=== PATIENT | female | born 1970 | race Caucasian/White ===

== ENCOUNTER 2017-07-02 10:21 | Emergency (ER) | payer OTHER ==
[~2017-07-02] VITALS: Ht 170.2 cm; Wt 88.5 kg
--- NOTE | 2017-07-02 11:07 | PHYS DOC ---
General Chief Complaint: MULTIPLE COMPLAINTS Stated Complaint: MULTIPLE COMPLAINTS Time Seen by MD: 11:02 Source: patient Exam Limitations: other (vague historian) Problems: History of Present Illness Initial Comments 47-year-old female sent to the emergency department from [place] for headache and vision changes Patient states that for the past 4-5 nights she "just hasn't been feeling well" and unable to sleep. Saturday morning (2 days ago) she developed nasal congestion with a dry cough and had multiple episodes of loose watery stools and retching no emesis or focal abdominal pain which lasted throughout that day. By Saturday morning GI symptoms had resolved but the cough and congestion persisted. Additionally, on Saturday morning while taking a shower patient began seeing flashing lights in her left eye, severe left cephalgia, and concomitant perceived darkened/blurred vision and "tunnel vision." The headache and vision changes lasted overnight and the patient went to [place] this afternoon for evaluation. On arrival to this emergency department patient was complaining of severe left sided head and body pain (throbbing/pressure) worse with bright light no known relieving factors. She was found to have left-sided trapezius and sternocleidomastoid muscle hypertonicity (chronic she states from prior left clavicle/sternum fracture) which somewhat decreased cervical rotatory range of motion but no actual nuchal rigidity noted. She denies fever, chills, diaphoresis, nausea, and myalgias no new lateralizing neurologic deficits other than the vision change. She was very fearful/anxious on arrival hyperventilating initially. I observed her to ambulate to the exam room unassisted and with normal gait, she was freely and without pain moving her head all directions looking around without pained expression or stiffness/ rigidity. ED VS: 100.4, 129, 18, 153/102, 96% RA Sepsis workup initiated, patient vaguely notified me of previously diagnosed "intracranial cyst so big it made a dent in my bones" which she used to monitor with yearly MR evaluations, she could not provide any other information about this. Due to new focal neurologic deficit and previously diagnosed intracranial mass LP contraindicated due to possibility of herniation. Timing/Duration: other (3 days) Severity: severe Modifying Factors: improves with other Associated Symptoms: headaches, other Allergies: Coded Allergies: Iodinated Contrast- Oral and IV Dye (Verified Allergy, Severe, 07/02/17) Past Medical History Medical History: migraines, other (left clavicle/sternum fracture, chronic left hip/shoulder pain, "intracranial cyst") Surgical History: other (ORIF left wrist) Social History Smoker: non-smoker Alcohol: occasionally Drugs: none Review of Systems Constitutional: denies chills, denies diaphoresis, denies fever, malaise EENTM: see HPI, denies ear pain, denies ear discharge, denies nose pain, nose congestion, denies throat pain Respiratory: denies cough, denies shortness of breath, denies wheezing Cardiovascular: denies chest pain, denies palpitations, denies syncope Gastrointestinal: denies abdominal pain, diarrhea, denies nausea, denies vomiting Genitourinary: denies dysuria, denies frequency, denies hematuria Musculoskeletal: see HPI, denies back pain, denies joint swelling Psychiatric/Neurological: see HPI, denies numbness, denies paresthesia Hematologic/Lymphatic: denies blood clots, denies easy bleeding, denies easy bruising Physical Exam General Appearance: moderate distress Eyes: left eye other (peripheral vision loss on confrontational testing), bilateral eye normal inspection, bilateral eye PERRL, bilateral eye EOMI Ear, Nose, Throat: hearing grossly normal, normal ENT inspection, normal pharynx (very dry mucus membranes) Neck: supple (left SCM/trapezius/scalene hypertonicity with tenderness and decreased R rotation/sidebending, neg kernig/brudzinski, no midline or bony TTP) Respiratory: normal breath sounds, no respiratory distress Cardiovascular: normal peripheral pulses, tachycardia (initially, HR normalized as pt relaxed) Gastrointestinal: normal bowel sounds, non tender, soft Back: no vertebral tenderness, CVA tenderness (L) Extremities: normal range of motion, non-tender, no pedal edema, no calf tenderness, pelvis stable 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 PATIENT: MICHELLE BASS ACCOUNT: [id number] : 1970 LOCATION: ER AGE: 47 SEX: F EXAM STATUS: REG ER ORD. PHYSICIAN: JUWAN DOOLEY DO REASON: fever cough PROCEDURE: PORTABLE CHEST 1V PORTABLE CHEST 1V History: Fever, cough, low potassium. Comparison: None. Findings: Cardiomediastinal silhouette is within normal limits. No focal airspace consolidation. No pneumothorax identified. No evidence of pleural effusion. Impression: No radiographic evidence of active airspace consolidation. Electronically signed by: Javan Maier MD (07/02/2017 11:55 AM) [facility] DICTATED AND SIGNED BY: JAVAN MAIER MD DATE: 07/02/17 1154 CC: SRINIRemigioNICOLAS; JUWAN DOOLEY DO ~ 1213: I rechecked the patient, heart rate has improved to the mid 90s, blood pressure has come down to 150/74. Patient's color is improving, her headache is much better and she is overall improving. No urge to urinate after 1 L, another bolus ordered. 1310: Patient rechecked, she is now sitting up and appears to be much more comfortable. VS are normal, and despite IV fluids, morphine, and dilaudid reports her headache remains unchanged. PATIENT: MICHELLE BASS ACCOUNT: [id number] : 1970 LOCATION: ER AGE: 47 SEX: F EXAM STATUS: REG ER ORD. PHYSICIAN: JUWAN DOOLEY DO REASON: headache, fever PROCEDURE: CT HEAD WO CONTRAST PQRS Compliance Statement: One or more of the following individualized dose reduction techniques were utilized for this examination: 1. Automated exposure control 2. Adjustment of the mA and/or kV according to patient size 3. Use of iterative reconstruction technique CT HEAD WITHOUT CONTRAST History: fever and headache since saturday, positive influenza Comparison: None. Procedure: Axial images are obtained of the head from the skull base through the vertex without IV contrast. Findings: The ventricles and sulci are normal for the patient's age. No mass-effect, midline shift, hemorrhage, extra-axial fluid collection, or obvious acute infarction is identified. Basilar cisterns are patent. Bone windows demonstrate no acute calvarial abnormality. The visualized paranasal sinuses are clear. Mastoid air cells are well aerated. IMPRESSION: No acute intracranial abnormality. Electronically signed by: Jin Victoria MD (07/02/2017 2:09 PM) [id number] DICTATED AND SIGNED BY: JIN VICTORIA MD DATE: 07/02/17 1408 CC: MARKRENYRemigioNICOLAS R; JUWAN DOOLEY DO ~ Visual acuity: 20/40 R, 20/40 L, 20/40 b/l with corrective lenses Throughout extended ED course patient received 2+ liters NS IV, toradol 30mg IV , serial 4mg morphine dosing, 1mg dilaudid, and imitrex SC. After initially stating she received 50% pain relief with first 4mg morphine IV she stated (I rechecked her hourly at minimum) the pain returned fully and no subsequent meds provided any relief. Patient also received rocephin 2mg and dexamethasone 10mg IV although meningitis very unlikely with left sided hemiplegia only and no nuchal rigidity. Concern for possible left retinal detachment with flashing lights left eye, blurred vision, peripheral field loss. No retinal ophthalmologic specialists at [facility], patient will need transfer to . 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 bed by Dr Yanet Hensley for further evaluation and treatment. Her assistance appreciated. IMPRESSIONS: Left cephalgia NOS Vision change left eye r/o detachment vs other Hypokalemia Hypovolemia Torticollis left sided Viral syndrome NOS Improved viral gastroenteritis Chronic Pain Departure Time of Disposition: 17:24 Disposition: 02 XFER SHT-TRM HOSP Condition: IMPROVED Additional Instructions: EMS transfer to for [facility] admission Dr Hensley accepting. JUWAN DOOLEY DO Jul 02, 2017 11:07
[2017-07-02] MEDS ORDERED: IV NORMAL SALINE 1,000ML 1,000 ML IV SCH ×3 (11:15→13:30)
[2017-07-02] MEDS ORDERED: SUMAtriptan. 6 MG/0.5 ML VIAL SQ ONE ×2 (11:15→13:15)
[2017-07-02] MEDS ORDERED: ONDANSETRON PF 4 MG/2 ML VIAL. IV ONE ×2 (11:15→13:30)
[2017-07-02] MEDS ORDERED: LORazepam 2 MG/ML VIAL IV ONE (11:15)
[2017-07-02] MEDS ORDERED: ACETAMINOPHEN 500 MG TABLET PO ONE (11:15)
[2017-07-02] MEDS ORDERED: KETOROLAC 30 MG/ML VIAL. IV ONE (11:15)
[2017-07-02 11:16] LABS: BASO % 1 % (0-3); EOS % 0 % (0-3); HEMOGLOBIN 12.9 g/dL (12.0-15.5); LYMPH # 0.9 x10^3/uL (1.0-4.8); LYMPH % 15 % (24-48); MEAN CORPUSCULAR HEMOGLOBIN 26 pg (25-35); MEAN CORPUSCULAR HGB CONC 33 g/dL (31-37); MEAN CORPUSCULAR VOLUME 79 fL (79-100); MONO # 0.6 x10^3/uL (0.0-1.1); MONO % 11 % (0-9); NEUT # 4.2 x10^3uL (1.8-7.7); NEUT % 73 % (31-73); PLATELET COUNT 291 x10^3/uL (140-400); RED BLOOD COUNT 4.94 x10^6/uL (3.50-5.40); WHITE BLOOD COUNT 5.8 x10^3/uL (4.0-11.0)
[2017-07-02 11:24] LABS: ALBUMIN 3.9 g/dL (3.4-5.0); ALBUMIN/GLOBULIN RATIO 0.8 (1.0-1.7); CALCIUM 8.7 mg/dL (8.5-10.1); GFR 59.7; POTASSIUM 3.2 mmol/L (3.5-5.1); TOTAL BILIRUBIN 0.2 mg/dL (0.2-1.0); TOTAL PROTEIN 8.5 g/dL (6.4-8.2)
[2017-07-02] MEDS: MORPHINE SULFATE 4 MG/ML DISP.SYRIN. IV/SQ PRN ×2 (11:26→12:55)
[2017-07-02] MEDS ORDERED: cefTRIAXone IV Push 1 GM VIAL. IVP ONE ×2 (11:30→15:00)
[2017-07-02 11:39] LABS: INFLUENZA A PATIENT NEGATIVE (NEGATIVE); INFLUENZA B PATIENT NEGATIVE (NEGATIVE)
[2017-07-02] MEDS ORDERED: POTASSIUM CHLORIDE 20 MEQ TABLET.ER. PO ONE (11:45)
--- NOTE | 2017-07-02 11:58 | RAD ---
PORTABLE CHEST 1V History: Fever, cough, low potassium. Comparison: None. Findings: Cardiomediastinal silhouette is within normal limits. No focal airspace consolidation. No pneumothorax identified. No evidence of pleural effusion. Impression: No radiographic evidence of active airspace consolidation. Electronically signed by: Javan Maier MD (07/02/2017 11:55 AM) [facility]
[2017-07-02 12:53] LABS: BILIRUBIN,URINE NEG (NEG); CLARITY,URINE CLEAR; COLOR,URINE STRAW; GLUCOSE,URINE NEG (NEG)
[2017-07-02 12:54] LABS: BACTERIA,URINE 0 /HPF (0-FEW); NITRITE,URINE NEG (NEG); RBC,URINE RARE /HPF (0-2); SQUAMOUS EPITHELIAL CELL,UR OCC /LPF; UROBILINOGEN,URINE 0.2 mg/dL (0.2 mg/dL); WBC,URINE RARE /HPF (0-4)
[2017-07-02] MEDS ORDERED: DEXAMETHASONE SOD PHOS 10 MG/ML VIAL IV ONE (13:30)
[2017-07-02] MEDS ORDERED: HYDROmorphone PF 2 MG/ML VIAL IV ONE (13:30)
--- NOTE | 2017-07-02 14:10 | EKG ---
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
--- NOTE | 2017-07-02 14:12 | RAD ---
PQRS Compliance Statement: One or more of the following individualized dose reduction techniques were utilized for this examination: 1. Automated exposure control 2. Adjustment of the mA and/or kV according to patient size 3. Use of iterative reconstruction technique CT HEAD WITHOUT CONTRAST History: fever and headache since saturday, positive influenza Comparison: None. Procedure: Axial images are obtained of the head from the skull base through the vertex without IV contrast. Findings: The ventricles and sulci are normal for the patient's age. No mass-effect, midline shift, hemorrhage, extra-axial fluid collection, or obvious acute infarction is identified. Basilar cisterns are patent. Bone windows demonstrate no acute calvarial abnormality. The visualized paranasal sinuses are clear. Mastoid air cells are well aerated. IMPRESSION: No acute intracranial abnormality. Electronically signed by: Jin Victoria MD (07/02/2017 2:09 PM) [id number]
[2017-07-02] MEDS ORDERED: MORPHINE SULFATE 4 MG/ML DISP.SYRIN. ONE (15:09)
[2017-07-02 16:48] VITALS: BP 135/80
== END 2017-07-02 17:23 | disposition short-term general hospital (02) ==
LOC: ER 10:21
DX: R51 Headache (principal); H53.8 Other visual disturbances; E86.1 Hypovolemia; E87.6 Hypokalemia; M43.6 Torticollis; A08.4 Viral intestinal infection, unspecified; G89.29 Other chronic pain; B34.9 Viral infection, unspecified; Z91.041 Radiographic dye allergy status
CPT/HCPCS: 36415; 70450; 71045; 80053; 81001; 82550; 83605; 83690; 84484; 85025; 86140; 87040; 87804; 93005; 96361; 96372; 96374; 96375; 96376; 99285; J0696; J1100; J1170; J1885; J2060; J2270; J2405; J3030; J7030

== ENCOUNTER 2020-04-20 18:43 | Emergency (ER) | payer OTHER ==
[~2020-04-20] VITALS: Ht 170.2 cm; Wt 120.0 kg
[2020-04-20 19:08] VITALS: BP 172/107
--- NOTE | 2020-04-20 20:19 | PHYS DOC ---
Past History Past Medical History: COPD, Hypothyroid Past Surgical History: Alcohol Use: None Drug Use: None General Adult EDM: Chief Complaint: KNEE INJURY HPI: HPI: Patient is a 49-year-old female presents with right knee pain. Patient states on [place] she stepped off one of her steps and twisted her knee. Patient reports tingling, numbness. Patient was okay this morning, but had her pick her up from work, and carry her to the vehicle because she could not put weight on her right leg. Patient reports taking ibuprofen today with little relief. Pedal pulses are strong. No swelling noted. Review of Systems: Review of Systems: Constitutional: Denies fever or chills Eyes: Denies change in visual acuity HENT: Denies nasal congestion or sore throat Respiratory: Denies cough or shortness of breath Cardiovascular: Denies chest pain or edema GI: Denies abdominal pain, nausea, vomiting, bloody stools or diarrhea : Denies dysuria Musculoskeletal: Denies back pain or joint pain Integument: Denies rash Neurologic: Denies headache, focal weakness or sensory changes Endocrine: Denies polyuria or polydipsia Lymphatic: Denies swollen glands Psychiatric: Denies depression or anxiety Allergies: Allergies: Allergies Coded Allergies Type Severity Reaction Last Updated Verified Iodinated Contrast Media Allergy Severe 07/02/17 Yes chloral hydrate Allergy Unknown 04/20/20 Yes codeine Allergy Unknown 04/20/20 Yes Physical Exam: PE: Constitutional: Well developed, well nourished, no acute distress, non-toxic appearance. [] HENT: Normocephalic, atraumatic, bilateral external ears normal, oropharynx moist, no oral exudates, nose normal. [] Eyes: PERRLA, EOMI, conjunctiva normal, no discharge. [] Neck: Normal range of motion, no tenderness, supple, no stridor. [] Cardiovascular:Heart rate regular rhythm, no murmur [] Lungs & Thorax: Bilateral breath sounds clear to auscultation [] Abdomen: Bowel sounds normal, soft, no tenderness, no masses, no pulsatile masses. [] Skin: Warm, dry, no erythema, no rash. [] Back: No tenderness, no CVA tenderness. [] Extremities: tenderness to right knee, no cyanosis, no clubbing, unable to bend right knee, no swelling noted Neurologic: Alert and oriented X 3, normal motor function, normal sensory function, no focal deficits noted. [] Psychologic: Affect normal, judgement normal, mood normal. [] Current Patient Data: Vital Signs: Vital Signs Date Time Temp Pulse Resp B/P (MAP) Pulse Ox O2 Delivery O2 Flow Rate FiO2 04/20/20 19:08 97.9 98 16 172/107 (128) 99 Room Air EKG: EKG: [] Radiology/Procedures: Radiology/Procedures: []EXAM: 3 views right knee DATE: 04/20/2020 7:31 PM INDICATION: Reason: RIGHT KNEE PAIN, FALL / Spl. Instructions: / History: COMPARISON: No Prior FINDINGS: Trace right knee joint fluid likely physiologic. No evidence of acute fracture or dislocation. Joint spaces are preserved without significant degenerative/proliferative change. IMPRESSION: No evidence of acute fracture or dislocation. Electronically signed by: Oneil Philippe MD (04/20/2020 8:49 PM) [facility] Heart Score: Risk Factors: Risk Factors: DM, Current or recent (<one month) smoker, HTN, HLP, family histo ry of CAD, obesity. Risk Scores: Score 0 - 3: 2.5% MACE over next 6 weeks - Discharge Home Score 4 - 6: 20.3% MACE over next 6 weeks - Admit for Clinical Observation Score 7 - 10: 72.7% MACE over next 6 weeks - Early Invasive Strategies Course & Med Decision Making: Course & Med Decision Making Pertinent Labs and Imaging studies reviewed. (See chart for details) [] 41-year-old female presents with right knee pain patient stepped off a step and twisted her knee. We will order right knee x-ray. Knee xray shows No evidence of acute fracture or dislocation. Will discharge with a knee brace and F/U with PCP for further evaluation. Dragon Disclaimer: Dragon Disclaimer: This electronic medical record was generated, in whole or in part, using a voice recognition dictation system. Departure Departure: Impression: Primary Impression: Knee pain, right Qualified Codes: M25.561 - Pain in right knee Disposition: 01 DC HOME SELF CARE/HOMELESS Condition: STABLE Referrals: NON,STAFF (PCP) Patient Instructions: Knee Pain, [id number] Additional Instructions: Knee brace has been provided to help with the pain. Continue taking ibuprofen and Tylenol as needed for discomfort. Please make an appointment with your PCP for further evaluation and possible MRI. EMERGENCY DEPARTMENT GENERAL DISCHARGE INSTRUCTIONS Thank you for coming to [facility] (ED) today and trusting us with you care. We trust that you had a positivie experience in our Emergency Department. If you wish to speak to the department management, you may call the director at [phone]. YOUR FOLLOW UP INSTRUCTIONS ARE FOLLOWS: 1. Do you have a private Doctor? If you do not have a private doctor, please ask for a resource list of physicians or clinics that may be able to assist you with follow up care. 2. The Emergency Physician has interpreted your x-rays. The X-Ray specialist will also review them. If there is a change in the findings, you will be notified in 48 hours when at all possible. 3. A lab test or culture has been done, your results will be reviewed and you will be notified if you need a change in treatment. ADDITIONAL INSTRUCTIONS AND INFORMATION: 1. Your care today has been supervised by a physician who is specially trained in emergency care. Many problems require more than one evaluation for a complete diagnosis and treatment. We recommend that you schedule your follow up appointment as recommended to ensure complete treatment of you illness or injury. If you are unable to obtain follow up care and continue to have a problem, or if your condition worsens, we recommend that you return to the ED. 2. We are not able to safely determine your condition over the phone nor are we able to give sound medical advice over the phone. For these safety reasons, if you call for medical advice we will ask you to come to the ED for further evaluation. 3. If you have any questions regarding these discharge instructions please call the ED at [phone]. SAFETY INFORMATION: In the interest of safety, wellness, and injury prevention; we encourage you to wear your sealbelt, if you smoke; quite smoking, and we encourage family to use a protective helmet for bicycling and other sporting events that present an increased risk for head injury. IF YOUR SYMPTOMS WORSEN OR NEW SYMPTOMS DEVELOP, OR YOU HAVE CONCERNS ABOUT YOUR CONDITION; OR IF YOUR CONDITION WORSENS WHILE YOU ARE WAITING FOR YOUR FOLLOW UP APPOINTMENT; EITHER CONTACT YOUR PRIMARY CARE DOCTOR, THE PHYSICIAN WHOSE NAME AND NUMBER YOU WERE GIVEN, OR RETURN TO THE ED IMMEDIATELY. Scripts Hydrocodone Bit/Acetaminophen (HYDROCODONE-APAP 5-325 ) 1 Each Tablet 1 TAB PO PRN Q6HRS PRN for PAIN for 3 Days, #12 TAB 0 Refills Prov: RADHA LUNA APRN 04/20/20 RADHA LUNA APRN Apr 20, 2020 20:19
[2020-04-20] MEDS ORDERED: HYDROcodone/APAP 5/325MG 1 TAB TABLET PO ONE (20:30)
--- NOTE | 2020-04-20 20:52 | RAD ---
EXAM: 3 views right knee DATE: 04/20/2020 7:31 PM INDICATION: Reason: RIGHT KNEE PAIN, FALL / Spl. Instructions: / History: COMPARISON: No Prior FINDINGS: Trace right knee joint fluid likely physiologic. No evidence of acute fracture or dislocation. Joint spaces are preserved without significant degenerative/proliferative change. IMPRESSION: No evidence of acute fracture or dislocation. Electronically signed by: Oneil Philippe MD (04/20/2020 8:49 PM) [id number]
[2020-04-20] MEDS ORDERED: HYDR-2155 PO (21:12)
== END 2020-04-20 21:10 | disposition home or self-care (01) ==
LOC: ER 18:43
DX: M25.561 Pain in right knee (principal); R20.0 Anesthesia of skin; J44.9 Chronic obstructive pulmonary disease, unspecified; E03.9 Hypothyroidism, unspecified; Z91.041 Radiographic dye allergy status; Z88.5 Allergy status to narcotic agent; Z88.8 Allergy status to other drugs, medicaments and biological substances; X50.9XXA Other and unspecified overexertion or strenuous movements or postures, initial encounter; Y93.89 Activity, other specified; Y92.89 Other specified places as the place of occurrence of the external cause; Y99.8 Other external cause status
CPT/HCPCS: 73562; 99284